=== PATIENT | female | born 1980 | race Caucasian/White ===

== ENCOUNTER 2022-07-29 12:52 | Outpatient (CLI) | payer OTHER, BC, SELFPAY ==
--- NOTE | 2022-07-29 13:00 | CRLHL7_ITS ---
For Patients: As a result of the Cures Act, medical imaging exams and procedure reports are released immediately into your electronic medical record. You may view this report before your referring provider. If you have questions, please contact your health care provider. BILATERAL SCREENING MAMMOGRAM WITH COMPUTER-AIDED DETECTION AND TOMOSYNTHESIS TECHNIQUE: CC and MLO views were obtained. These mammographic images have been obtained using full-field digital technique. These mammographic images were interpreted with the benefit of computer-aided detection. Breast Tomosynthesis was used in this interpretation. COMPARISON FILM: 07-28-21, 06-04-20, 02-22-19. FINDINGS: There are scattered areas of fibroglandular density IMPRESSION: There is no radiographic evidence for malignancy. ASSESSMENT: BI-RADS Category 1: Negative RECOMMENDATION: Routine screening mammogram in 1 year. A lay language report of this examination will be provided to the patient. Estrada Villegas M.D. Diagnostic Radiologist [email or web address] CAS/[email or web address] / be/Dictated by: Estrada Villegas MD @ 08/01/2022 10:34:00 AM (Electronically Signed)
== END 2022-07-29 12:53 | disposition home or self-care (01) ==
LOC: MAMMO 12:54
PROVIDERS: PCP Family Medicine; Visit Provider Family Medicine
DX: Z12.31 Encounter for screening mammogram for malignant neoplasm of breast (principal)
CPT/HCPCS: 77063; 77067

== ENCOUNTER 2022-11-10 09:12 | Outpatient (CLI) | payer OTHER, BC, SELFPAY ==
[2022-11-10 14:08] LABS: Chloride* 108 mmol/L (96-114); Sodium* 140 mmol/L (135-149)
[2022-11-10 14:09] LABS: Potassium* 4.1 mmol/L (3.6-5.1)
[2022-11-10 14:10] LABS: Cholesterol* 180 mg/dL (90-199)
[2022-11-10 14:11] LABS: Alanine Aminotransferase* 23 U/L (4-35); Alkaline Phosphatase* 75 U/L (40-150); Aspartate Amino Transferase* 19 U/L (12-35); Bilirubin Total* 0.7 mg/dL (0.1-1.5); Blood Urea Nitrogen* 9 mg/dL (5-24); Carbon Dioxide* 26 mmol/L (20-32); Creatinine* 0.7 mg/dL (0.5-1.5); Estimated Glomerular Filt Rate 109 ml/min; Glucose* 97 mg/dL (60-115); Total Protein* 6.7 g/dL (6.0-8.3); Triglycerides* 132 mg/dL (40-149)
[2022-11-10 14:12] LABS: HDL Cholesterol* 48 mg/dL (>=50); LDL Cholesterol Calculated 106 mg/dL (<100)
== END 2022-11-10 09:13 | disposition home or self-care (01) ==
PROVIDERS: PCP Physician Assistant Medical; Visit Provider Physician Assistant Medical
DX: Z00.00 Encounter for general adult medical examination without abnormal findings (principal); E66.9 Obesity, unspecified; Z13.6 Encounter for screening for cardiovascular disorders; Z13.29 Encounter for screening for other suspected endocrine disorder
CPT/HCPCS: 80053; 80061; 84443

== ENCOUNTER 2023-01-05 09:16 | Outpatient (RCR) | payer OTHER, BC, SELFPAY ==
--- NOTE | 2023-01-05 15:35 | PT.OPEX ---
PT [place] Outpatient Eval PT [facility] Outpatient Eval Start: 01/05/23 09:18 Freq: Status: Active Protocol: Document 01/05/23 13:12 LUDIVINA (Rec: 01/05/23 13:39 LUDIVINA [id number]) E-signed By Zeenat Gil, PT Physical Therapy Outpatient Evaluation Insurance Information Insurance Name Medicaid,Blue Cross/Blue Shield Insurance Information/Comments UMR Medical Diagnosis urinary incontinence Treating Diagnosis mixed UI symptoms continuous leakage lack of muscle coordination/ weakness Referring MD Paola Avila PA-C Subjective Subjective Ximena presents with diagnosis of urinary incontinence. Symptoms started approx 4 years ago for no known reason and over time has worsened. Her symptoms are of urinary leakage throughout the day. Is aware that it is occurring but not able to control. Does notice some UI symptoms with laughing and escobar in the door. Has tried to self treat with use of a Perfit, but is not able to produce a correct PFM contraction per the readout. Bowel function is good. Pt did have a cholecystectomy and overall is doing well with bowels. Only issues with intercoerse is fear of possibility leaking during orgasm, otherwise no concerns noted. Goals for therapy include imporoving bladder function and learning how to better control it. 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 Through evaluation did find, pt is drinking 2 cans of Coke and 1 cup of Ramakrishna tea. Does not drink water or any other non caffeinated beverage. Is generally urinating every 2-4 hours and has no difficulty emptying bladder. Will toilet often just in case especially prior to leaving home. Does used pads and will only go through 1 pad a day. Did not have time to complete the evaluation today. At her next session, will continue to assess bladder and PFM function. Pt is appropriate for further skilled PT services including use of therapeutic exercise, therapeutic activities, neuromuscular re-ed, manual therapy, and self cares to improve her bladder function and reduce UI symptoms. Plan of Care Rehabilitation Potential Good Physical Therapy Goals Short term goals to be achieved in 4 weeks 1. Able to state 4 of 4 urge suppression/bladder retraining strategies 2. Able to report a reduction in her UI symptoms as seen with having a dry pad 3 out of 7 days. 3. Pt will demonstrate use of functional PFM contraction by performing a precontraction to eliminate UI with laughing. 4. Will demonstrate an increase in PFM endurance to 8 sec holds X 10 reps for ability to reduce UI symptoms with her daily routine. 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 1. Independent with self-care program to allow for reduction in her UI symptoms 2. Will report an 80% reduction in her UI symptoms as seen with ability to stay dry at least 5 out of 7 days. 3. Pt will be able to demonstrate proper mechanics with lifting/carrying, including ability to manage IAP, to reduce NEIL symptoms. Coordination/Communication With Referral Source Treatment Plan/Direct Interventions Joint Mobilization,Manual Therapy,Neuromuscular Re-ed, Self-Care/Home Management, Therapeutic Activities, Therapeutic Exercises Frequency/Duration 1 time a week for up to 12 visits Patient Will Be Discharged From Therapy Completion of LTG(s),Skills Plateau,Independent w/HEP, Independently Progressing Evaluation Billing Untimed Code Treatment Minutes 35 Complexity Moderate Certification Information Initial Certification Date 01/05/23 Ending Certification Date 03/06/23 Provider Signature Shows Agreement With POC & Medical Necessity Physician Signature & Date Requested Please Sign/Date Here Physician Comment/Change : Physician NPI Number #
== END 2023-03-24 13:40 | disposition home or self-care (01) ==
PROVIDERS: PCP Physician Assistant Medical; Visit Provider Physician Assistant Medical
DX: N39.46 Mixed incontinence (principal); M62.81 Muscle weakness (generalized); R27.9 Unspecified lack of coordination; Z51.89 Encounter for other specified aftercare
CPT/HCPCS: 97162; 97535

== ENCOUNTER 2023-04-19 10:00 | Outpatient (RCR) | payer OTHER, BC, SELFPAY ==
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
== END 2023-06-01 12:53 | disposition home or self-care (01) ==
PROVIDERS: PCP Physician Assistant Medical; Visit Provider Physician Assistant
DX: M76.51 Patellar tendinitis, right knee (principal); M25.561 Pain in right knee; S83.91XA Sprain of unspecified site of right knee, initial encounter; Z51.89 Encounter for other specified aftercare
CPT/HCPCS: 97110; 97140; 97162

== ENCOUNTER 2023-07-31 09:07 | Outpatient (CLI) | payer OTHER, BC, SELFPAY ==
--- NOTE | 2023-07-31 09:15 | CRLHL7_ITS ---
For Patients: As a result of the Cures Act, medical imaging exams and procedure reports are released immediately into your electronic medical record. You may view this report before your referring provider. If you have questions, please contact your health care provider. BILATERAL SCREENING MAMMOGRAM WITH COMPUTER-AIDED DETECTION AND TOMOSYNTHESIS TECHNIQUE: CC and MLO views were obtained. These mammographic images have been obtained using full-field digital technique. These mammographic images were interpreted with the benefit of computer-aided detection. Breast tomosynthesis was used in this interpretation. COMPARISON FILM: 07/29/22, 07/28/21, 06/04/20. FINDINGS: There are scattered areas of fibroglandular density. IMPRESSION: There is no radiographic evidence for malignancy. ASSESSMENT: BI-RADS Category 1: Negative RECOMMENDATION: Routine screening mammogram in 1 year. A lay language report of this examination will be provided to the patient. ESTRADA SALAS M.D. Diagnostic Radiologist [email or web address] CAS/[email or web address] Transcribed: 07/31/2023, 3:[address]/Dictated by: Estrada Salas MD @ 07/31/2023 12:28:00 PM (Electronically Signed)
== END 2023-07-31 09:08 | disposition home or self-care (01) ==
LOC: MAMMO 09:08
PROVIDERS: PCP Physician Assistant Medical; Visit Provider Physician Assistant Medical
DX: Z12.31 Encounter for screening mammogram for malignant neoplasm of breast (principal)
CPT/HCPCS: 77063; 77067

== ENCOUNTER 2023-09-13 11:45 | Outpatient (RCR) | payer OTHER, BC, SELFPAY ==
--- NOTE | 2023-07-13 09:53 | PT.OPE ---
PT [place] Outpatient Eval PT [facility] Outpatient Eval Start: 07/12/23 11:44 Freq: Status: Active Protocol: Document 07/12/23 11:45 BMS (Rec: 07/12/23 13:04 BMS [id number]) E-signed By Juanita Horne PT Physical Therapy Outpatient Evaluation Insurance Information Recert Due Date 10/09/23 Insurance Name Other; See Comments Insurance Information/Comments [place], [facility]? Medical Diagnosis primary osteoarthritis of right knee M17.11 Unilateral primary osteoarthritis R knee Treating Diagnosis knee pain Right M25.561 abnormal gait R26.89 Referring MD Kevin Tan MD Subjective Subjective pain was better with physical therapy, but in past few weeks has gotten worse, like I can' t even walk without limping, cannot make myself walk normal . Both knees hurt here (medial joint line up to patella) and the right one also here ( above and below patella). Can' t walk normal cant go up/down stairs without a lot of pain cameron on way down have to go half sideways. occasionally knee gives out, is stiff with getting in and out of car, stiff with sitting a long time . went to [place] and could hardly get through the airport. then got covid. and I did have a cortisone injection 5 days ago and woke up this morning and I actually think it might be feeling better. feels very very tight. 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 want to be able to walk normal, stairs, less pain and be able to move my knee Pain Comments 0-5 with walking, severe with going down stairs, can't squat Occupation not currently working Precautions Treatment Precautions/Contraindications from EMR Primary osteoarthritis of right knee (Acute) M17.11 - Unilateral primary osteoarthritis, right knee ( ICD-10) Right knee pain (Acute) M25.561 - Pain in right knee ( ICD-10) Urinary bladder incontinence ( Acute) R32 - Unspecified urinary incontinence (ICD-10) Obesity (Acute) E66.9 - Obesity, unspecified ( ICD-10) Objective Range of Motion B knee WNL - R 0-120 ankle WNL Strength MMT seated R hip flexor 3+ to 4-/5 with pain ankle groups 5/5. quad and HS B 5/5 Swelling midpatella 49.0 cm 12 cm distal to inferior patellar arnie = 50.0 cm Palpation very limited patellar mobility , myofascial restrictions through quad HS, plantaris and calf. significant tightness and some pitting edema in calf . severe tenderness popliteal fossa, into calf and HS. very thick tissue throughout LE Balance & Gait straight R knee and ankle held stiff with circumduction and hip hike compensatory patterns . able to correct with extreme exaggeration and gait aid. trialed walking poles, FWW and rail, best was walking poles able to get into good pattern though did require frequent cueing for knee and ankle motions. Posture inc body habitus, R knee flex in standing with offloading of affected limb. Other/Pertinent Objective (-) lachmans, limited patellar mobility also hypertonic quad vs significant guardign. Assessment Assessment/Impression Patient is pleasant 43 yo female referred for R knee pain, acute on chronic with significant increase in past few weeks. She was traveling to [place] to spend time with family had significant difficulty manuevering in airport and found she was unable to walk normally. Has adopted a straight leg technique with circumduction, no use of gait aid and lack of pushoff even after instruction. Partially able to correct with walking poles. She did have cortisone inj in R knee 5 days past and feels this is starting to help. ROM WNL this date for ankle and knee, decreased hip flexor strength and mod to severe tenderness throughout LE. Limited passive mobility of patella as well as PA and AP mobility through joint with thickened tissue throughout B LE and mod to severe tenderness noted as well. Patient states she has been continuing previous HEP as instructed by Sofia LOPEZ. Will revise/modify and advance this HEP as tolerated next session . Patient is appropriate for skilled physical therapy to improve level of activity and function for health/fitness and caring for dependents. Plan of Care Rehabilitation Potential Good Physical Therapy Goals 1) Patient demo I with HEP for functional strength, gait and balance. 2) Pt demo appropriate self management skills incl use of TENS, ice/heat, compression, elevation, self massage and use of appropriate gait aid prn. 3) Pt report pain <2/10 with ascend descend stairs for navigation of home 4) Pt demo hip flexor strength 5/5 and abiltiy to rise sit/ stand x 5 without use of arms 5) Pt demo ability to ambulate 500-1000' for grocery shopping etc without pain > 3/ 10 Treatment Plan/Direct Interventions Electrical Stimulation,Gait Training,Joint Mobilization, Manual Therapy,Neuromuscular Re-ed,Self-Care/Home Management,Therapeutic Activities,Therapeutic Exercises,Ultrasound Frequency/Duration 1x/ week up to 8 visits over 12 weeks Patient Will Be Discharged From Therapy Completion of LTG(s),Skills Plateau,Independent w/HEP, Independently Progressing Evaluation Billing Untimed Code Treatment Minutes 30 Complexity Moderate Certification Information Initial Certification Date 07/12/23 Ending Certification Date 10/09/23 Provider Signature Shows Agreement With POC & Medical Necessity Physician Signature & Date Requested Please Sign/Date Here Physician Comment/Change : Physician NPI Number #
== END 2023-12-27 11:58 | disposition home or self-care (01) ==
PROVIDERS: PCP Physician Assistant Medical; Visit Provider Orthopaedic Surgery
DX: M17.11 Unilateral primary osteoarthritis, right knee (principal); M25.561 Pain in right knee; R26.89 Other abnormalities of gait and mobility; Z51.89 Encounter for other specified aftercare
CPT/HCPCS: 97035; 97110; 97116; 97140; 97162

== ENCOUNTER 2023-09-28 11:54 | Outpatient (CLI) | payer OTHER, BC, SELFPAY | END 2023-09-28 11:55 | disposition home or self-care (01) | PROVIDERS: PCP Physician Assistant Medical; Visit Provider Physician Assistant Medical | DX: R05.9 Cough, unspecified (principal); I10 Essential (primary) hypertension; M25.50 Pain in unspecified joint; M25.561 Pain in right knee | CPT/HCPCS: 84550; 86039; 86140; 86200; 86431; 86618 ==

== ENCOUNTER 2024-01-26 08:55 | Outpatient (CLI) | payer OTHER, SELFPAY | END 2024-01-26 08:56 | disposition home or self-care (01) | PROVIDERS: PCP Physician Assistant Medical; Visit Provider Family Medicine | DX: R07.89 Other chest pain (principal); I10 Essential (primary) hypertension; Z13.220 Encounter for screening for lipoid disorders | CPT/HCPCS: 80061; 84484; 85379 ==

== ENCOUNTER 2024-08-09 10:21 | Outpatient (CLI) | payer OTHER, SELFPAY ==
--- NOTE | 2024-08-09 10:15 | CRLHL7_ITS ---
For Patients: As a result of the Century Cures Act, medical imaging exams and procedure reports are released immediately into your electronic medical record. You may view this report before your referring provider. If you have questions, please contact your health care provider. BILATERAL SCREENING MAMMOGRAM WITH COMPUTER-AIDED DETECTION AND TOMOSYNTHESIS TECHNIQUE: CC and MLO views were obtained. These mammographic images have been obtained using full-field digital technique. These mammographic images were interpreted with the benefit of computer-aided detection. Breast tomosynthesis was used in this interpretation. COMPARISON FILM: 07/31/23, 07/29/22, 07/28/21. FINDINGS: There are scattered areas of fibroglandular density. IMPRESSION: There is no radiographic evidence for malignancy. ASSESSMENT: BI-RADS Category 1: Negative RECOMMENDATION: Routine screening mammogram in 1 year. A lay language report of this examination will be provided to the patient. ESTRADA SALAS M.D. Diagnostic Radiologist [email or web address] Transcribed: 08/15/2024, 3:[address]/Dictated by: Estrada Salas MD @ 08/15/2024 11:22:00 AM (Electronically Signed)
== END 2024-08-09 10:22 | disposition home or self-care (01) ==
LOC: MAMMO 10:22
PROVIDERS: PCP Physician Assistant Medical; Visit Provider Physician Assistant Medical
DX: Z12.31 Encounter for screening mammogram for malignant neoplasm of breast (principal)
CPT/HCPCS: 77063; 77067

== ENCOUNTER 2025-01-21 13:00 | Outpatient (RCR) | payer OTHER, SELFPAY ==
--- NOTE | 2024-07-24 17:22 | PT.OPDNX ---
PT [place] Outpatient Daily Note PT [place] Outpatient Daily Note Start: 07/19/24 16:28 Freq: Status: Active Protocol: Document 07/24/24 14:02 LUDIVINA (Rec: 07/24/24 14:05 LUDIVINA [id number]) E-signed By Zeenat Gil, PT PT [facility] Daily Progress Note Visit Information Note Type Daily Note Visit Number 1 Insurance Information Recert Due Date 10/22/24 Insurance Name Medicaid,Blue Cross/Blue Shield Medical Diagnosis Mixed UI Treating Diagnosis mixed UI lack of coordination of muscles Referring MD Leandra Scott PA-C Subjective Subjective Ximena presents with diagnosis of mixed UI. Symptoms started around 7 years ago. Her symptoms over time have worsened. Current symptoms include constant leaking of urine (dribbling) throughout the day. Does have some leaking, or feeling of possible leaking, with coughing, sneezing, laughing, running, jumping, during intercourse, and with escobar in the door. She also struggles with larger leaks when she gets into the bathroom and sees the toilet. Her bowel function is overall good. Daily BM and no symptoms of constipation. Type 4 stools on the BSS. Pt has had a cholecystectomy and tends to have softer stools depending on her diet. her sexual function has also changed recently. Able to orgasm but may be taking a little longer to get to climax. Overall has a good libido. Denies any dryness or pain. Her main concern with sexual activity is leaking urine with climaxing at times especially with external stimulation of clitoris. Her goal for therapy includes gaining better bladder control. Date of Last Physician Visit 06/18/24 Objective Functional Test Performed & Score PF questionnaire: Bladder function: Bowel function: Prolapse symptoms: 0/15 Sexual function: Patient Instructed in Risks/Benefits Yes Self Care Management Training Self-Care Activity Minutes (minutes) 15 Self Care Management Training Pt was instructed on the following topics to improve PFM function and to reduce symptoms of UI: Normal bladder function - increasing water intake during day. Reduce caff beverages Normal voiding schedule How diet impacts bladder function-- how her beverages may be leaking to more issues of freq Urge reduction techniques to help reduce episodes of ; leaking with escobar in the door and when in the bathroom Treatment Minutes Untimed Code Treatment Minutes 40 Timed Code Treatment Minutes 15 Total Treatment Time 55 Billing Units Self-Care Activity Units 1 Assessment/Impression Assessment/Impression 44 yo client presents with UI throughout the day. Her symptoms are related to both stress and urge UI. With further discussion her overall voiding schedule is WFL, usually every 2-4 hours. Does have occasions of needing to urinate hourly. At times, may wait up to 6 hours between urinations. At night waking 1 -2 times a night to void. Leakage is only occurring during the day. Is aware she is leaking most of the time. Pt strongest urges are typically related to escobar in the door and then when she sees the toilet. These urges are difficult to control and can lead to larger volumes of urine leaked. Pt has vaginally delivered 4 children with minimal difficulties and good recoveries following all births. Does have hx/o lumbar dysfunction. Did not e time to complete assessment of pt's PFM at this time. Will complete assessment at her next session. With findings present during her evaluation, pt does have singifcant UI and symptoms of PFD which can be helped with PF rehab. Pt is appropriate for further skilled PT services including use of therapeutic exercise, therapeutic activities, neuromuscular re-ed, manual therapy, and self cares for symptom reduction. Plan of Care Physical Therapy Goals Short term goals to be achieved in 4 weeks 1. Able to state 4 of 4 urge suppression/bladder retraining strategies to help reduce UI symptoms with escobar in the door and when in bathroom 2. Able to report voiding intervals of 1X every 2-4 hours, 75% of the time. 3. Pt will demonstrate use of functional PFM/precontraction to eliminate UI during lifting , laughing, coughing, and sneezing. 4. Will demonstrate an increase in PFM endurance to at least 8 sec holds X 10 reps , and full ability to return to normal resting tone between contractions, for a reduction in her UI symptoms with ADLs and social activities. USP goals to be achieved in 12 weeks. 1. Independent with self-care program to allow for reduction in her UI symptoms 2. Will report an 80% reduction in her UI symptoms as seen with ability to stay dry 5 out of 7 days or greater . 3. Pt will be able to demonstrate proper mechanics with lifting/carrying, including ability to manage IAP, to reduce NEIL symptoms. 4. Pt will report no UI symptoms with all sexual activities at least 3 out of 4 trials Daily Plan of Care Continue per POC Daily Plan of Care Comments assess lumbar, pelvic and hips assess PFM function review ways to reduce NEIL with climaxing/orgasms - clit stim HEP to stretching -- progress to strengthening prn.
--- NOTE | 2024-11-21 13:26 | PT.OPDNX ---
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 Since her last session, pt reports she has been more active. Has been walking daily, doing yoga, drinking less tea (but not replacing it with water), and doing Kegels 2 times a day. Has been doing the other exs/ core but not as much. The urgency has lessened for the most part. Did have seem leaking the other day when bending over. Reports her urinary pads continues to be puffy by the end of the day so does continue to have leaking during the day. Only waking up 1 time a night to urinate. As of late, pt has been waking up feeling more stressed. Sleeping really light. Is thinking she may be having hot flashes some nights but not intense. She does not feel like she is more stressed than normal so unsure where these symptoms are coming from. Date of Last Physician Visit 06/18/24 Home Exercise Home Exercise Comments Access Code: [email or web address] URL: [email or web address] Date: 08/16/2024 Prepared by: Marily Gil Exercises - Standing Hip Flexor Stretch - 1 x daily - 5-7 x weekly - 2-4 reps - 20-30 sec hold Objective Functional Test Performed & Score PF questionnaire: Bladder function: Bowel function: 34 Prolapse symptoms: 0/15 Sexual function: Patient Instructed in Risks/Benefits Yes Therapeutic Exercise Therapeutic Exercise Minutes (minutes) 15 Therapeutic Exercise: To Restore Pt has not been dong her core Functional Status exs as much. Did review importance of these exs to help improve function and coordination. Did review PF PT/Pelvic brace - did need near constant cueing again for proper breathing and execution. pt has been dong a couple of online yoga programs. Did review what pt her PFM tone is high and we are looking for slow flow/more relaxation yoga so pt can work on breathing and downtraining. Started pt on trying to assess and strengthen EUS with stopping stream. Pt did receive written instruction with the idea of trying to do this 2 times a day to 3 times a week to assess progress. Did educated on symptoms of higher tone PFM so pt is able to stop if needed Rev Nomi added - small contraction X 3-5 sec, with emphasis on the relaxation phase between contractions. 2- 4 in a row. 2 time a day. Manual Therapy Techniques Manual Therapy Minutes (minutes) 25 Manual Therapy Techniques External TPR along bulbo, ischio, STP and LA. MT was performed to all layers intravaginally along all layers to reduce tone/spasms and muscle guarding. TPR intravaginally was focused along all layers - B bulbo, L SUC and CU, and B ID B PC and B IC due to higher tone and reactivity. Did use breath to work on reducing tone. Self Care Management Training Self-Care Activity Minutes (minutes) 20 Self Care Management Training Did review good sleep hygiene and ideas to help with sleep quality - listening to progressive relaxation, breathing, reduce screen time/ blue lights and possible magnesium. Did review type of magnesium and which may be more helpful for sleep - pt has mg glycinate at home. Will resume taking. Due to her leaking symptoms with bending did review need to better manage her IAP. Will work on exhale with bending, lifting, transitional movement is NEIL is occurring. Also add in pelvic brace when performing activities that still cause leaking despite her exhaling. Treatment Minutes Timed Code Treatment Minutes 60 Total Treatment Time 60 Billing Units Manual Therapy Units 2 Self-Care Activity Units 1 Therapeutic Exercise Units 1 Assessment/Impression Assessment/Impression Pt feels like she is improving somewhat. Less frequent urination at night and daily urges aren't as strong. She has not continued with the PF core routine but has been doing other fitness activities more consistently. Did review her HEP today. Due to her PFM tone being elevated, did stop her PFM contractions. Pt is struggling to return to normal resting tone between contractions. With intravaginal MT today, pt had significant tenderness along all PFM. Her tone was elevated with varying levels from mild to mod+. Did review need to work on downtraining and relaxation again. Did work on how to use deep breathing to help reduce tone. By end of session, pt was doing better with her ability to reduce tone of her PFM. Has better understanding of need to work on downtraining. Did find mild descent in region of the bladder with laughing. Will monitor for possible POP symptoms. Worked on IAP management today to reduce risk of POP worsening as well as working on PFM muscle tone reduction. Pt had no more appts scheduled. Will schedule more appt due to findings today and her continued issues with higher tone and UI symptoms. Most likely will not be able to return to PT until December due to fullness of schedules and scheduling conflicts. Did schedule 2 more sessions in December. Will reassess her PFM tone and overall function of her PFM. Will direct on ways/exs/HEP to better improve her status. Plan of Care Physical Therapy Goals Short term goals to be achieved in 4 weeks 1. Able to state 4 of 4 urge suppression/bladder retraining strategies to help reduce UI symptoms with escobar in the door and when in bathroom IMPROVED 2. Able to report voiding intervals of 1X every 2-4 hours, 75% of the time. IMPROVED 3. Pt will demonstrate use of functional PFM/precontraction to eliminate UI during lifting , laughing, coughing, and sneezing. IMPROVED 4. Will demonstrate an increase in PFM endurance to at least 8 sec holds X 10 reps , and full ability to return to normal resting tone between contractions, for a reduction in her UI symptoms with ADLs and social activities. GOAL HAS BEEN PLACED ON HOLD DUE TO HER CURRENT SYMPTOMS. shelter goals to be achieved in 12 weeks. 1. Independent with self-care program to allow for reduction in her UI symptoms IMPROVED 2. Will report an 80% reduction in her UI symptoms as seen with ability to stay dry 5 out of 7 days or greater . NOT MET 3. Pt will be able to demonstrate proper mechanics with lifting/carrying, including ability to manage IAP, to reduce NEIL symptoms. IMPROVED - MORE AWARE OF BREATH HOLDING 4. Pt will report no UI symptoms with all sexual activities at least 3 out of 4 trials UNKNOWN Daily Plan of Care Continue per POC,Change POC; See Comments Daily Plan of Care Comments Will continue with 2-6 more session Recertification Information Initial Certification Date 07/24/24 Recertification Start Date 11/20/24 Recertification Due Date 02/18/25 Reasons to Continue Skilled Therapy Pt has not been seen over the past 5 weeks. Did find her UI symptoms are occurring during the day without her awareness at times. Her PFM tone was elevated. Did find her PFM contractions were stronger (3- /5) but she was not able to return to normal resting tone between contractions. Pt has been more active but has not specifically been working on her PF exs. Did redirect pt on importance of her HEP. During treatment today, was able to cue pt on ways to help reduce the tone of her PFM, pt did well as instructed. Will work on trying to improve her PFM resting tone. Rehabilitation Potential good Continued Plan of Care and Interventions PLan is to cont with 2-6 more sessions over 12 weeks. Pt is appropriate for further skilled PT services due to her continued issues with over active PFM, PFM weakness (2/5 with MMT), and issues with possible POP from ant vaginal wall. Will use of therapeutic exercise, therapeutic activities, neuromuscular re- ed, manual therapy, and self cares for symptom reduction. Provider Signature Shows Agreement With POC & Medical Necessity Physician Comment/Change Comment or Changes Physician NPI Number #
== END 2025-05-21 23:59 | disposition home or self-care (01) ==
PROVIDERS: PCP Physician Assistant Medical; Visit Provider Physician Assistant Medical
DX: N39.46 Mixed incontinence (principal); R27.8 Other lack of coordination; Z51.89 Encounter for other specified aftercare
CPT/HCPCS: 97110; 97112; 97140; 97162; 97535

== ENCOUNTER 2025-08-12 14:45 | Outpatient (CLI) | payer OTHER, SELFPAY ==
--- NOTE | 2025-08-12 15:00 | CRLHL7_ITS ---
For Patients: As a result of the Century Cures Act, medical imaging exams and procedure reports are released immediately into your electronic medical record. You may view this report before your referring provider. If you have questions, please contact your health care provider. INDICATION: BILATERAL SCREENING MAMMOGRAM, ASYMPTOMATIC 45 Y/O FEMALE COMPARISON: 08/09/2024, 07/31/2023, 07/29/2022 TECHNIQUE: Digital mammogram in CC and MLO projections including computer-aided detection (CAD) and tomosynthesis. BREAST COMPOSITION: There are scattered areas of fibroglandular density. FINDINGS: No suspicious findings. ASSESSMENT: BI-RADS 1 Negative RECOMMENDATION: Annual screening mammogram. A lay language report of this examination will be provided to the patient. Dictated by: Estrada Villegas MD @ 08/13/2025 08:53:01 (Electronically Signed)
== END 2025-08-12 14:46 | disposition home or self-care (01) ==
PROVIDERS: PCP Physician Assistant Medical; Visit Provider Physician Assistant Medical
DX: Z12.31 Encounter for screening mammogram for malignant neoplasm of breast (principal)
CPT/HCPCS: 77063; 77067